=== PATIENT | female | born 1985 ===

== ENCOUNTER 2025-09-27 06:23 | Day surgery (SDC) | payer OTHER, SELFPAY ==
[2025-09-27] VITALS (8 sets, daily range): BP systolic 110–128; BP diastolic 59–78; BMI 32.9
[2025-09-27] MEDS: CELEBREX 200 MG PO (13:49)
[2025-09-27] MEDS: TYLENOL 1000 MG PO (13:49)
[2025-09-27] MEDS: NORMOSOL-R/PLASMALYTE-A 1000 IV (13:50)
[2025-09-27] MEDS: ZOFRAN 4 MG IV (19:42)
--- NOTE | 2025-09-29 10:25 | OR.RPT ---
Operative Report
Operative Report
Patient Name: Joan Funes

Date of Surgery: 09/27/2025
Surgeon:�Carmelo Franklin DPM
Rn Ortho:�Carmelo Gonzalez DPM
Pre-operative diagnosis:
Left displaced 5th metatarsal base avulsion fracture
Post-operative diagnosis:�Same as preoperative
Procedure:
Open reduction and internal fixation (ORIF) of left 5th metatarsal base fracture (CPT 05654)
Anesthesia:
General anesthesia with local block
Hemostasis:
Pneumatic thigh tourniquet at 300 mmHg for the entirety of the procedure
Estimated blood loss:
Minimal
Specimens:
None
Implants:
Two 3.0 mm Courtney microASNIS screws
Complications:
None
Indications for Procedure:
The patient is a 40 year old female who sustained a left foot injury while traveling approximately one week ago. Radiographs revealed a displaced 5th metatarsal base avulsion fracture. Due to the degree of displacement and the patient�s ongoing pain
and functional limitation, surgical intervention with open reduction and internal fixation was recommended to achieve stable alignment and promote reliable healing. Risks, benefits, and alternatives were explained in detail, and the patient elected
to proceed.
Description of Procedure:
The patient was brought to the operating room and placed supine on the operating table. After induction of anesthesia, a well-padded pneumatic thigh tourniquet was applied. The left lower extremity was prepped and draped in the usual sterile
fashion.
A longitudinal incision was made over the base of the 5th metatarsal. Blunt dissection was carried carefully through subcutaneous tissues, with protection of the sural nerve and peroneus brevis tendon insertion. The fracture site was identified and
exposed. Hematoma and interposed soft tissue were removed.
The fracture fragment was mobilized and anatomically reduced to the metatarsal base using pointed reduction clamps. Fluoroscopy confirmed anatomic alignment in all views.
Two guidewires were placed across the fracture fragment into the metatarsal base under fluoroscopic guidance. After confirming appropriate positioning, each guidewire was sequentially drilled and replaced with a�3.0 mm Courtney microASNIS screw�to
achieve stable fixation. Final fluoroscopic images confirmed excellent gnosticism of the cortical contour, compression across the fracture site, and proper implant placement.
The wound was irrigated with copious amounts of sterile saline. Layered closure was performed with 2-0 vicryl for deep tissues, 3-0 vicryl for subcutaneous tissues, and 3-0 nylon for the skin. A sterile dressing was applied, followed by a
well-padded posterior splint.
The patient tolerated the procedure well without complications.
Postoperative Plan:
Non-weightbearing to the left lower extremity in a posterior splint.
Elevation and ice to reduce swelling.
Transition to protected weightbearing in several weeks based on healing progress.
Follow-up in 10�14 days for suture removal.
Radiographs to be obtained at routine intervals to assess fracture healing.
== END 2025-09-27 20:30 | disposition home or self-care (01) ==
LOC: SDS 06:23
PROVIDERS: ATTENDING PHYSICIAN Student in an Organized Health Care Education/Training Program
DX: S92.352A Displaced fracture of fifth metatarsal bone, left foot, initial encounter for closed fracture (principal); X50.1XXA Overexertion from prolonged static or awkward postures, initial encounter
CPT/HCPCS: 28485; C1713